=== PATIENT | female | born 1995 | race Caucasian/White ===

== ENCOUNTER 2017-12-06 06:05 | Emergency (ER) | payer OTHER, SELFPAY | END 2017-12-06 06:37 | LOC: EEVIPCON 06:05 → NAV ERS 06:05 | DX: F10.129 Alcohol abuse with intoxication, unspecified (principal); H55.00 Unspecified nystagmus; V89.2XXA Person injured in unspecified motor-vehicle accident, traffic, initial encounter; Y92.410 Unspecified street and highway as the place of occurrence of the external cause | CPT/HCPCS: 99283 ==